=== PATIENT | female | born 1980 | race American Indian/Alaskan Native ===

== ENCOUNTER 2022-06-26 07:41 | Emergency (ER) | payer SELFPAY ==
[2022-06-26 08:08] VITALS: BP 104/53
--- NOTE | 2022-06-26 08:08 | Emergency Department Report ---
ED Neck Pain/Injury HPI - General Chief Complaint: Extremity Injury, Upper Stated Complaint: RIGHT ARM NUMB Time Seen by Provider: 06/26/22 08:06 Mode of arrival: Ambulatory Limitations: No Limitations - Related Data Previous Rx's Medication Instructions Recorded Last Taken Type Cyclobenzaprine [Flexeril] 10 mg PO TID PRN #10 tablet 06/26/22 Unknown Rx Ibuprofen [Motrin] 800 mg PO Q8HR PRN #30 tablet 06/26/22 Unknown Rx Allergies Allergy/AdvReac Type Severity Reaction Status Date / Time No Known Allergies Allergy Verified 06/26/22 08:04 ED Review of Systems ROS: Stated complaint: RIGHT ARM NUMB Other details as noted in HPI Comment: All other systems reviewed and negative ED Past Medical Hx - Past Medical History Previous Medical History?: No - Surgical History Past Surgical History?: No - Family History Family history: no significant - Social History Smoking Status: Never Smoker Substance Use Type: Marijuana - Medications Home Medications: Home Medications Medication Instructions Recorded Confirmed Last Taken Type Cyclobenzaprine [Flexeril] 10 mg PO TID PRN #10 tablet 06/26/22 Unknown Rx Ibuprofen [Motrin] 800 mg PO Q8HR PRN #30 tablet 06/26/22 Unknown Rx ED Physical Exam - General Limitations: No Limitations General appearance: alert, in no apparent distress - Head Head exam: Present: atraumatic, normocephalic - Eye Eye exam: Present: normal appearance - ENT ENT exam: Present: mucous membranes moist - Neck Neck exam: Present: normal inspection - Respiratory Respiratory exam: Present: normal lung sounds bilaterally. Absent: respiratory distress - Cardiovascular Cardiovascular Exam: Present: regular rate, normal rhythm. Absent: systolic murmur, diastolic murmur, rubs, gallop - GI/Abdominal GI/Abdominal exam: Present: soft, normal bowel sounds - Extremities Exam Extremities exam: Present: normal inspection - Back Exam Back exam: Present: normal inspection - Neurological Exam Neurological exam: Present: alert, oriented X3 - Psychiatric Psychiatric exam: Present: normal affect, normal mood - Skin Skin exam: Present: warm, dry, intact, normal color. Absent: rash ED Course Vital Signs 06/26/22 06/26/22 08:06 08:09 Temperature 98.6 F Pulse Rate 68 Respiratory 17 Rate Blood Pressure 104/53 Critical care attestation.: If time is entered above; I have spent that time in minutes in the direct care of this critically ill patient, excluding procedure time. ED Disposition Clinical Impression: Radiculopathy affecting upper extremity Disposition: 01 HOME / SELF CARE / HOMELESS Is pt being admited?: No Does the pt Need Aspirin: No Condition: Stable Instructions: Radicular Pain Additional Instructions: meds as ordered today follow up with pcp and or ortho referral below warm baths will help Referrals: PRIMARY CAREMD [Primary Care Provider] - 3-5 Days CORINNE ARBOLEDA MD [Staff Physician] - 3-5 Days ANSELMO PANIAGUA MD [Staff Physician] - 3-5 Days Time of Disposition: 09:20
[2022-06-26] MEDS ORDERED: CYCLOBENZAPRINE 10 MG TAB PO ONE (09:09)
[2022-06-26] MEDS ORDERED: IBUPROFEN 800 MG TAB PO ONE (09:09)
== END 2022-06-26 09:40 | disposition home or self-care (01) ==
LOC: ED 07:41
DX: M54.10 Radiculopathy, site unspecified (principal); R20.0 Anesthesia of skin; F12.90 Cannabis use, unspecified, uncomplicated; Z79.899 Other long term (current) drug therapy
CPT/HCPCS: 99282